=== PATIENT | female | born 1985 | race Caucasian/White ===

== ENCOUNTER 2022-12-28 17:58 | Emergency (ER) | payer BC, MEDICAID, SELFPAY ==
[2022-12-28 18:00] VITALS: BP 112/68; PULSE 67; TEMP 37.1; O2SAT 100; BMI 44.1
--- NOTE | 2022-12-28 18:30 | CTR_ITS ---
PROCEDURE INFORMATION: Exam: CT Head Without Contrast Exam date and time: 12/28/2022 7:47 PM Age: 37 years old Clinical indication: Pain; Headache; Post-traumatic; Additional info: Fall during reported seizure, GRUBBS, occipital pain TECHNIQUE: Imaging protocol: Computed tomography of the head without contrast. Radiation optimization: All CT scans at this facility use at least one of these dose optimization techniques: automated exposure control; mA and/or kV adjustment per patient size (includes targeted exams where dose is matched to clinical indication); or iterative reconstruction. REPORTING DATA: Count of CT and Cardiac NM exams in prior 12 months: This patient has received 0 known CTs and 0 known cardiac nuclear medicine studies in the 12 months prior to the current study. COMPARISON: No relevant prior studies available. RADIATION DOSE METRICS: Total DLP (mGy-cm): 1058.78 FINDINGS: Brain: Normal. No hemorrhage. Unremarkable white matter. No mass effect. Cerebral ventricles: No ventriculomegaly. Paranasal sinuses: Visualized sinuses are unremarkable. No fluid levels. Mastoid air cells: Visualized mastoid air cells are well aerated. Bones/joints: Unremarkable. No acute fracture. Soft tissues: Unremarkable. CT/CT head wo con* [id number] IMPRESSION: No acute intracranial abnormality.
[2022-12-28 18:32] VITALS: BP 130/67; PULSE 58; RESP 18; O2SAT 100
--- NOTE | 2022-12-28 18:33 | ED_ITS ---
HPI - Seizure General: Chief Complaint: Seizure Stated Complaint: Seizures Time Seen by Provider: 12/28/22 18:12 History of Present Illness: HPI Narrative: 37yo female here via EMS for evaluation following seizure-like activity while she was at work. Patient and mother report that beginning in June she has had seizure-like activity. States that it started with a head injury while she was at work in June. States that 2 weeks later, she had another head injury which they determined was a second concussion. States 5 days later she started stuttering. Reports it has progressed since then. States that she has had a CT scan and MRI in June and both were negative. States that she did see neurology and had an EEG in August or July, which was unremarkable. Patient reports that she hears a popping noise and describes a gusher of fluid, then headache begins and has days of pain. They have seen Dr. Lobo, neurology at [facility]. States that they believe it is related to migraines and anxiety. They report that they have been on Imitrex, Topamax, and buspirone as well as Prozac and spironolactone but have not noticed any improvement. They have discovered that bills are a trigger for her episodes. Mother does state that 3 days ago she had 2-3 episodes, a couple of episodes yesterday, a couple this morning, but then a bigger one this afternoon. Mother has noticed point tenderness to the back of the patient's school. States that if that area is palpated, she will have an episode. They deny any recent illness, cough, congestion, vomiting, diarrhea, dysuria. Patient reports that she has had a hysterectomy. Associated symptoms: Deny chest pain, chills, diaphoresis or fever(s) Review of Systems Const: Denies: fever(s), chills, body aches or diaphoresis ENMT: Denies: throat pain Card: Denies: chest pain Resp: Denies: dyspnea GI: Denies: vomiting or diarrhea : Denies: difficulty voiding or dysuria Musc: Denies: neck pain Neuro: Reports: headache(s) and seizure-like activity; Denies: dizziness [place]/Lymph: Denies: easy bruising Physical Exam Const: COMMON NORMALS: no acute distress, patient oriented x3 and alert GENERAL APPEARANCE: cooperative ORIENTATION/CONSCIOUSNESS: Yes awake OTHE R: Patient is sitting upright on the stretcher in no acute distress. She is able to give history, but does have to have mother assist. HENMT: COMMON NORMALS: normocephalic, external ears normal, EAC's normal, TM's normal bilaterally and Normal external nose present HEAD & SCALP: normocephalic NOSE: Normal external nose present GENERAL EAR: hearing grossly impaired EXTERNAL EAR: Yes external ears normal and Yes external ear abnormal EXTERNAL AUDITORY CANAL: EAC's normal TYMPANIC MEMBRANE: TM's normal bilaterally MOUTH: Normal oral and palatal mucosa present THROAT: posterior oropharynx normal Eye: COMMON NORMALS: Equal, round and reactive pupils present, EOMs intact bilaterally and conjunctivae normal GENERAL EYE: appearance normal, both eyes and all related structures CONJUNCTIVA: Yes conjunctivae normal PUPIL: Yes Equal, round and reactive pupils present Neck/C-Spine: COMMON NORMALS: full ROM CERVICAL SPINE: Yes cervical ROM normal Chest: CHEST: Yes Symmetrical chest wall rise Resp: COMMON NORMALS: normal respiratory effort, No use of accessory muscles and clear to auscultation bilaterally EFFORT & INSPECTION: No respiratory distress AUSCULTATION: clear to auscultation bilaterally Cardio: COMMON NORMALS: regular rate and regular rhythm RATE: regular rate RHYTHM: regular rhythm GI: COMMON NORMALS: Normal to inspection, nondistended, normoactive bowel sounds present, Soft to palpation and non-tender PALPATION: Yes Soft to palpation : COMMON NORMALS: Yes no CVA tenderness BLADDER/KIDNEY EXAM: Yes no CVA tenderness Back/Pelvis: COMMON NORMALS: no CVA tenderness Extremity: COMMON NORMALS: full ROM and capillary refill normal Neuro: ANOOP COMA SCALE: document GCS findings Anoop coma scale eye opening: Spontaneous Anoop coma scale verbal response: Orientated Anoop coma scale motor response: Obey commands Anoop coma scale total score: 15 COMMON NORMALS: patient oriented x3 SENSORIUM/ORIENTATION: Yes alert SPEECH: speech normal OTHER: Episode was observed during exam. Started with rhythmic movements of the left arm, then progressed to rhythmic movements of bilateral arms. Patient was awake and speaking at this time. She then started having rhythmic movements of her legs as well, then a staring episode, then relaxation of the body. Patient was an active participant in the conversation within 30 seconds following the episode. There was a second episode during the exam when patient sat forward for auscultation of the lungs. Patient appeared to slump to her right side and was assisted to lay back on the stretcher. She stayed in this position for 30 seconds to 1 minute, then was back awake and talking with no difficulties. Psych: COMMON NORMALS: mental status grossly normal Skin: COMMON NORMALS: no rashes or lesions noted GENERAL SKIN EXAM: no rashes or lesions noted Course Vital Signs: Vital signs: Vital Signs Temperature 98.7 F 12/28/22 18:00 Pulse Rate 62 12/28/22 21:39 Respiratory Rate 17 12/28/22 21:39 Blood Pressure 137/76 12/28/22 21:39 Pulse Oximetry 99 12/28/22 21:39 Oxygen Delivery Me thod Room Air 12/28/22 20:41 MDM - Seizure MDM Narrative Medical decision making narrative: 37yo female here via EMS with mother for evaluation of seizure-like activity while she was at work. Patient reports that she has had been having seizure- like activity since 2 head injuries in June. She has been evaluated by her neurologist, Dr. Lobo at [facility]. Patient has had negative CT and MRI in June and a negative EEG in July or August. She was diagnosed with complex migraines and anxiety, started on Imitrex, Topamax, buspirone, Prozac, a nd spironolactone. Patient reports that she did hit her head today when she fell during her seizure-like activity. States that she does have tenderness to the back of her head and a significant headache. She denies any recent illness, fever, chills, cough, congestion, vomiting, diarrhea. Patient reports a history of a hysterectomy. Patient is nontoxic in appearance. Vital signs are stable. CBC is grossly unremarkable. CMP is also grossly unremarkable. UA with 2+ leukocytes and 25-40 white blood cells and 2+ bacteria. UDS positive for benzodiazepines. CT of the head with no acute concerning abnormalities. Discussed findings with patient and mother. Advised that we would begin carmen tment for the urinary tract infection. Patient did receive ceftriaxone while in the emergency department and a prescription for cephalexin was sent to her pharmacy. As for the seizure-like activity, advised that we can have her follow-up with neurology here in [place]. A referral was placed. Encouraged patient and family to take video of the episodes so that the neurologist will know what they are talking about. Also advised that they may need to obtain their records from [facility] to provide for the neurologist. Advised to continue to monitor symptoms. Recommend follow-up with primary care for recheck of the urine in about a week. Advised return to the emergency department if any rapid worsening symptoms and as needed. Differential Diagnosis Seizure Differential Diagnosis: Likely focal seizure and generalized seizure Lab Data 12/28/22 18:48 12/28/22 18:48 Labs: Radiology Impressions Head CT 12/28/22 18:30 IMPRESSION: No acute intracranial abnormality. Laboratory Results WBC 7.4 10^3/uL (4.0-10.0) 12/28/22 18:48 RBC 3.83 10^6/uL (4.1-5.3) L 12/28/22 18:48 Hgb 11.6 g/dL (11.5-15.3) 12/28/22 18:48 Hct 34.0 % (37.0-47.0) L 12/28/22 18:48 MCV 88.8 fl (81-99) 12/28/22 18:48 MCH 30.3 pg (28.0-34.0) 12/28/22 18:48 MCHC 34.1 g/dL (30.0-36.0) 12/28/22 18:48 RDW 13.2 % (12.1-15.1) 12/28/22 18:48 Plt Count 226 10^3/cmm (130-400) 12/28/22 18:48 MPV 9.9 fL (7.4-10.4) 12/28/22 18:48 Neut % (Auto) 62.1 % 12/28/22 18:48 Lymph % (Auto) 29.6 % 12/28/22 18:48 [place] % (Auto) 5.7 % 12/28/22 18:48 Eos % (Auto) 1.5 % 12/28/22 18:48 Baso % (Auto) 0.7 % 12/28/22 18:48 Neut # (Auto) 4.59 10^3/uL (1.8-7.7) 12/28/22 18:48 Lymph # (Auto) 2.2 10^3/uL (0.8-4.8) 12/28/22 18:48 [place] # (Auto) 0.4 10^3/uL (0.2-0.9) 12/28/22 18:48 Eos # (Auto) 0.1 10^3/uL (0.0-0.8) 12/28/22 18:48 Baso # (Auto) 0.1 10^3/uL (0.0-0.1) 12/28/22 18:48 Nucleated RBC % (auto) 0 % 12/28/22 18:48 Nucleated RBCs # 0.0 /100WBC 12/28/22 18:48 Sodium 139 mmol/L (136-145) 12/28/22 18:48 Potassium 4.0 mmol/L (3.5-5.1) 12/28/22 18:48 Chloride 107 mmol/L (98-107) 12/28/22 18:48 Carbon Dioxide 22 mmol/L (22-29) 12/28/22 18:48 Anion Gap 14.0 (5-19) 12/28/22 18:48 BUN 16 mg/dL (6-20) 12/28/22 18:48 Creatinine 0.8 mg/dL (0.5-0.9) 12/28/22 18:48 GFR Calculation 81.6 mL/min (90-130) L 12/28/22 18:48 Glucose 82 mg/dL (65-115) 12/28/22 18:48 Calculated Osmolality 288 mOsm/kg (285-295) 12/28/22 18:48 Calcium 8.7 mg/dL (8.5-10.5) 12/28/22 18:48 Total Bilirubin 0.3 mg/dL (0.15-1.2) 12/28/22 18:48 AST 14 U/L (0-32) 12/28/22 18:48 ALT 14 U/L (0-33) 12/28/22 18:48 Alkaline Phosphatase 76 U/L (35-105) 12/28/22 18:48 Total Protein 6.6 g/dL (6.6-8.7) 12/28/22 18:48 Albumin 4.2 g/dL (3.5-5.2) 12/28/22 18:48 Globulin 2.4 g/dL (1.3-4.6) 12/28/22 18:48 Urine Color Yellow (Yellow) 12/28/22 19:17 Urine Appearance Hazy (CLEAR) A 12/28/22 19:17 Urine pH 6 (5-7) 12/28/22 19:17 Ur Specific [place] 1.020 (1.005-1.030) 12/28/22 19:17 Urine Protein Neg (Negative) 12/28/22 19:17 Urine Glucose (UA) Norm (Normal) 12/28/22 19:17 Urine Ketones Negative (Negative) 12/28/22 19:17 Urine Blood Neg (Negative) 12/28/22 19:17 Urine Nitrate Negative (Negative) 12/28/22 19:17 Urine Bilirubin Neg (Negative) 12/28/22 19:17 Urine Urobilinogen Norm mg/dL (Negative) 12/28/22 19:17 Ur Leukocyte Esterase 2+ (Negative) H 12/28/22 19:17 Urine RBC 0-4 /hpf (0-2) H 12/28/22 19:17 Urine WBC 25-40 /hpf (0-5) H 12/28/22 19:17 Ur Squamous Epith Cells 5-10 /hpf (0-5) H 12/28/22 19:17 Amorphous Sediment Not Reportable 12/28/22 19:17 Urine Bacteria 2+ /hpf (NONE) H 12/28/22 19:17 Urine Mucus 2+ /hpf 12/28/22 19:17 Urine Opiates Screen Negative ng/mL (Negative) 12/28/22 19:17 Ur Barbiturates Screen Negative ng/mL (Negative) 12/28/22 19:17 Ur Phencyclidine Scrn Negative ng/mL (Negative) 12/28/22 19:17 Ur Amphetamines Screen Negative ng/mL (Negative) 12/28/22 19:17 U Benzodiazepines Scrn Positive ng/mL (Negative) H 12/28/22 19:17 Urine Cocaine Screen Negative ng/mL (Negative) 12/28/22 19:17 U Marijuana (THC) Screen Negative ng/mL (Negative) 12/28/22 19:17 Discharge Plan Discharge Patient Disposition: Home Clinical Impression: Seizure-like activity, UTI (urinary tract infection) Condition: Stable Prescriptions: New cephalexin 500 mg capsule 500 mg PO BID 7 Days Qty: 14 0RF Continued spironolactone 100 mg tablet 100 mg PO BID albuterol sulfate 90 mcg/actuation HFA aerosol inhaler 2 puff inhalation Q6H PRN (Reason: shortness of breath or wheezing) Qty: 8.5 2RF No Action phentermine 37.5 mg capsule 37.5 mg PO DAILY Rx Instructions: must administer 30 minutes before or 1-2 hours after breakfast prednisone 10 mg tablet 30 mg PO DAILY 5 Days Qty: 15 0RF Rx Instructions: start this medicine on Discharge Orders: Discharge ED (Routine); Ordered 12/28/22 Ordered By: Marcus So Referrals: Erick Solorzano [Primary Care Provider] - Discharge Diet: Usual diet Discharge Activity: Resume usual activity Patient Instructions: Urinary Tract Infection in Women (ED) Activity Restrictions/Additional Instructions: A referral has been placed to neurology here at [facility]. They should call you to schedule an appointment He did receive ceftriaxone while in the emergency department for the urinary tract infection. Cephalexin has been sent to your pharmacy for continuation of antibiotic therapy You may follow-up with your primary care in about a week for recheck of your urine. Also call them for an ER follow-up Return to the emergency department if any rapid worsening symptoms and as needed Coding Level of Care Code ED Ad Compositor for Alfredo Banks
[2022-12-28 19:10] LABS: Basophils # 0.1 10^3/uL (0.0-0.1); Basophils % 0.7 %; Eosinophils # 0.1 10^3/uL (0.0-0.8); Eosinophils % 1.5 %; Hemoglobin 11.6 g/dL (11.5-15.3); Lymphocytes # 2.2 10^3/uL (0.8-4.8); Lymphocytes % 29.6 %; Mean Corpuscular HGB Conc 34.1 g/dL (30.0-36.0); Mean Corpuscular Hemoglobin 30.3 pg (28.0-34.0); Mean Corpuscular Volume 88.8 fl (81-99); Mean Platelet Volume 9.9 fL (7.4-10.4); Monocytes # 0.4 10^3/uL (0.2-0.9); Monocytes % 5.7 %; Neutrophils # 4.59 10^3/uL (1.8-7.7); Neutrophils % 62.1 %; Nucleated Red Blood Cells % 0 %; Platelet Count 226 10^3/cmm (130-400); Red Blood Count 3.83 10^6/uL (4.1-5.3); Red Cell Distribution Width 13.2 % (12.1-15.1); White Blood Count 7.4 10^3/uL (4.0-10.0)
--- NOTE | 2022-12-28 19:20 | PC.NURSE ---
Answered the emergency call light in the bathroom and pt was found to be seated in the floor next to the trash can. the call light was placed behind the grab bar and her urine was placed on the back of the toilet with the lid on. When this nurse opened the door the pt was looking at me and then she immediately dropped her head and began to shake. After a light sternal rub pt opened her eyes. Pt was assisted back to her room and physician was notified.
[2022-12-28 19:24] LABS: Alanine Aminotransferase 14 U/L (0-33); Albumin Level 4.2 g/dL (3.5-5.2); Alkaline Phosphatase 76 U/L (35-105); Aspartate Amino Transferase 14 U/L (0-32); Blood Urea Nitrogen 16 mg/dL (6-20); Calcium 8.7 mg/dL (8.5-10.5); Carbon Dioxide 22 mmol/L (22-29); Chloride 107 mmol/L (98-107); Globulin 2.4 g/dL (1.3-4.6); Glomerular Filtration Rate 81.6 mL/min (90-130); Glucose 82 mg/dL (65-115); Osmolality Calculated 288 mOsm/kg (285-295); Sodium 139 mmol/L (136-145); Total Bilirubin 0.3 mg/dL (0.15-1.2); Total Protein 6.6 g/dL (6.6-8.7)
[2022-12-28 19:40] VITALS: BP 154/82; PULSE 61; RESP 18; O2SAT 100
[2022-12-28 19:40] LABS: Add Urine Microscopic? YES; Bilirubin Urine Neg (Negative); Blood Urine Neg (Negative); Glucose Urine UA Norm (Normal); Ketones Urine Negative (Negative); Leukocyte Esterase Urine 2+ (Negative); Nitrate Urine Negative (Negative); Protein Urine Neg (Negative); Urine Appearance Hazy (CLEAR); Urine Color Yellow (Yellow); Urobilinogen Urine Norm (Negative); pH Urine 6 (5-7)
[2022-12-28 19:41] LABS: Add Urine Culture? Yes; Bacteria Urine 2+ /hpf; Mucus Urine 2+ /hpf; RBC Urine 0-4 /hpf (0-2); WBC Urine 25-40 /hpf (0-5)
[2022-12-28 19:42] LABS: Amphetamines Screen Urine Negative (Negative); Barbiturates Screen Urine Negative (Negative); Benzodiazepines Screen Urine Positive (Negative); Cocaine Screen Urine Negative (Negative); Opiate Screen Urine Negative (Negative); PCP Screen Urine Negative (Negative); THC Screen Urine Negative (Negative)
[2022-12-28 20:41] VITALS: O2SAT 100
[2022-12-28] MEDS: cefTRIAXone 1,000 MG in sodium chloride 0.9% (plus) 50 ML 100 MG IV (21:10)
[2022-12-28 21:39] VITALS: BP 137/76; PULSE 62; RESP 17; O2SAT 99
--- NOTE | 2022-12-29 07:56 | DCPLANNER ---
Addendum entered by Selina oMra 01/05/23 13:34: Patient has a follow up appointment scheduled for Tuesday, March 21, 2023 at 10:[address] Mcqueen at neurology. Original Note: weatherization operations manager had message to schedule a follow up appointment for patient with neurology. weatherization operations manager sent patients information to the front office staff at neurology. Patients information will be printed and reviewed. Clinic will call patient with appointment information.
== END 2022-12-28 21:41 | disposition home or self-care (01) ==
PROVIDERS: Emergency Provider Nurse Practitioner; PCP Family Medicine
DX: R56.9 Unspecified convulsions (principal); N39.0 Urinary tract infection, site not specified
CPT/HCPCS: 12345; 70450; 80053; 80306; 81001; 85025; 87086; 96365; 99285; J0696

== ENCOUNTER 2024-01-17 08:30 | Outpatient (CLI) | payer BC, MEDICAID, SELFPAY ==
--- NOTE | 2024-01-17 08:30 | MR_ITS ---
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 TECHNIQUE: 3-D MR angiography is performed of the [place]. All images are reviewed including source images. Distal vertebral and basilar arteries are intact with no significant stenosis or plaque. Persistent f etal circulation of the RIGHT posterior cerebral artery. RIGHT P1 segment is hypoplastic or absent. L EFT posterior cerebral artery is normal caliber. Intracranial portion of the internal carotid arteries are normal course and caliber. No significant a therosclerosis, stenosis or aneurysm identified. There is a tiny focus in the proximal RIGHT M1 segme nt which is not causing an occlusion. This may be a small amount of plaque. No aneurysm. LEFT middle cerebral artery is normal. A1 segments and A2 segments are normal. Anterior communicating artery is n egative. MR/MR angio head wo con [id number] IMPRESSION: 1. No occlusions or significant stenosis in the [place]. 2. Tiny low signal focus in the proximal RIGHT M1 segment may be a small amoun t of atherosclerotic plaque. 3. No aneurysms.
--- NOTE | 2024-01-17 08:45 | MR_ITS ---
WS: [id number] MRI CERVICAL SPINE with and without contrast HISTORY: R56.9 - Unspecified convulsions COMPARISON: None available. Technique: Multiplanar, multisequence noncontrast imaging of the cervical spine. Close MultiHance sidra ging also performed. Normal cervical alignment with no compression fracture or significant disc space narrowing. Slight ec topia the cerebellar tonsils. No Chiari malformation. Signal within the cervical cord is normal. Visualized posterior fossa is unremarkable. Craniocervical junction, C1 and C2 relationship, odontoid process and soft tissues are normal. C2-C3: Normal. C3-C4: Normal. C4-C5: Small foraminal osteophytes with no stenosis. C5-C6: Normal. C6-C7: Small central disc protrusion with small foraminal osteophytes. No stenosis. C7-T1: Normal. Postcontrast imaging is negative. There is no discitis or osteomyelitis. No enhancement. MR/MR cervical spine wo/w [id number] IMPRESSION: 1. No high-grade central or foraminal stenosis. 2. No discitis or osteomyelitis. 3. Small central disc protrusion with foraminal osteophytes at C6-7. No stenos is.
--- NOTE | 2024-01-17 09:30 | MR_ITS ---
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 Significantly limited evaluation of the carotid arteries due to poor image quality and venous contami nation. TECHNIQUE: MRA is performed with intravenous gadolinium. MIP and source images are reviewed. Right: Common carotid artery through the bifurcation is intact. The more proximal and distal carotid artery not well visualized. Left: Common carotid artery through the bifurcation is intact. No significant stenosis. No plaque. Th e more proximal and distal carotid artery not well visualized. Subclavian Arteries: Not visualized. Vertebral Arteries: Vertebral arteries proximally are not well visualized. The origin of each vertebr al artery cannot be evaluated. Through the transverse foramina at the vertebral arteries are both pat ent. MR/MR angio neck w con* [id number] IMPRESSION: 1. Proximal vertebral arteries and common carotid arteries inadequately includ ed on this examination. 2. Carotid bifurcations are intact. No high-grade stenosis. No significant ath erosclerotic plaque. 3. Poorly visualized subclavian arteries due to technique.
[2024-01-17] MEDS: gadobenate dimeglumine 20 mL vial IV (10:26)
== END 2024-01-17 08:31 | disposition home or self-care (01) ==
PROVIDERS: PCP Family Medicine; Visit Provider Psychiatry & Neurology Neurology
DX: F44.5 Conversion disorder with seizures or convulsions (principal)
CPT/HCPCS: 70544; 70548; 72156; A9577

== ENCOUNTER → 2024-03-06 14:58 | Outpatient (BNVA) | payer BC, SELFPAY | PROVIDERS: PCP Family Medicine; Visit Provider Psychiatry & Neurology Neurology | DX: R20.0 Anesthesia of skin (principal) | CPT/HCPCS: 36415; 80053; 81241; 82306; 82607; 82746; 83090; 83735; 83921; 84439; 84443; 84481; 85025; 85210; 85300; 85306; 86140; 86147 ==

== ENCOUNTER 2024-05-08 07:39 | Outpatient (CLI) | payer BC, MEDICAID, SELFPAY ==
[2024-05-08 08:36] LABS: 25 Hydroxy Vitamin D 32 ng/mL (30-100)
== END 2024-05-08 07:40 | disposition home or self-care (01) ==
LOC: LAB 07:43
PROVIDERS: PCP Family Medicine; Visit Provider Psychiatry & Neurology Neurology
DX: E55.9 Vitamin D deficiency, unspecified (principal)
CPT/HCPCS: 36415; 82306

== ENCOUNTER → 2024-09-11 09:23 | Outpatient (BNVA) | payer BC, SELFPAY | PROVIDERS: PCP Family Medicine | DX: Z79.899 Other long term (current) drug therapy (principal) | CPT/HCPCS: 80061; 83036 ==